=== PATIENT | male | born 1940 | race Caucasian/White ===

== ENCOUNTER 2016-07-16 14:58 | Emergency (ER) | payer SELFPAY ==
[2016-07-16] MEDS ORDERED: NORMAL SALINE 1000 ML 1,000 ML IV ONE ×2 (15:18→18:06)
[2016-07-16] MEDS ORDERED: THIAMINE HCL INJ 200 MG/2 ML VIAL IV ONE (15:18)
--- NOTE | 2016-07-16 15:50 | EKG REPORT ---
SEVERITY:- ABNORMAL ECG - SINUS RHYTHM INCOMPLETE RIGHT BUNDLE BRANCH BLOCK : Confirmed by: Mekhi Ambrosio 16-Jul-2016 15:49:34
[2016-07-16 15:54] LABS: ABSOLUTE EOSINOPHILS # (AUTO) 0.1 10^3/uL (0.0-0.6); ABSOLUTE LYMPHOCYTES (AUTO) 0.9 10^3/uL (0.5-4.7); ABSOLUTE MONOCYTES (AUTO) 0.8 10^3/uL (0.1-1.4); ABSOLUTE NEUT (AUTO) 4.7 10^3/uL (1.7-8.2); BASOPHILS % (AUTO) 0.7 % (0-2); EOSINOPHILS % (AUTO) 1.7 % (0-6); HEMATOCRIT 37.4 % (37.9-51.0); HGB HCT DIFFERENCE -1.4; LYMPHOCYTES % (AUTO) 13.8 % (13-45); MEAN CORPUSCULAR HEMOGLOBIN 33.4 pg (27.0-33.4); MEAN CORPUSCULAR VOLUME 105 fl (80-97); MONOCYTES % (AUTO) 12.5 % (3-13); RED BLOOD COUNT 3.58 10^6/uL (4.35-5.55); RED CELL DISTRIBUTION WIDTH 19.2 % (11.5-14.0); SEGMENTED NEUTROPHILS % (AUTO) 71.3 % (42-78); WHITE BLOOD COUNT 6.7 10^3/uL (4.0-10.5)
--- NOTE | 2016-07-16 16:09 | ER Document Report ---
ED General - General Mode of Arrival: Medic Information source: Patient - HPI Onset: Other - see narrative Onset/Duration: Persistent Quality of pain: Cramping <SIS MALONEY - Last Filed: 07/16/16 22:01> <VENKATA JAY - Last Filed: 07/16/16 22:42> - General Stated Complaint: WEAKNESS Notes: Patient is a 76-year-old male that presents to the emergency department today with complaints of 3 days of generalized weakness with associated mild abdominal pain. Patient states he is an alcoholic, drinking EtOH nearly every day. Patient states his last drink was yesterday. Patient states he has felt "not well" over the last few days and he states that this feeling has getting worse recently. Patient appears demented so history is limited. (SIS MALONEY) - Related Data Allergies/Adverse Reactions: No Known Allergies Allergy (Unverified 07/16/16 16:48) Past Medical History - General Information source: Patient, [facility] Records Cannot obtain history due to: Dementia - Social History Smoking Status: Former Smoker Cigarette use (# per day): No Frequency of alcohol use: None Drug Abuse: None Lives with: Family Family History: Reviewed & Not Pertinent Surgical Hx: Other - states he has had surgeries in the past but he does not remember what they were <SIS MALONEY - Last Filed: 07/16/16 22:01> Review of Systems - Review of Systems Constitutional: See HPI, Weakness EENT: No symptoms reported Cardiovascular: No symptoms reported Respiratory: No symptoms reported Gastrointestinal: See HPI, Abdominal pain - generalized Genitourinary: No symptoms reported Male Genitourinary: No symptoms reported Musculoskeletal: No symptoms reported Skin: No symptoms reported Hematologic/Lymphatic: No symptoms reported Neurological/Psychological: No symptoms reported -: Yes All other systems reviewed and negative <SIS MALONEY - Last Filed: 07/16/16 22:01> Physical Exam - General General appearance: Alert In distress: None - HEENT Mouth/Lips: Other - dry oral mucosa, peeling skin on lips Mucous membranes: Dry - Respiratory Respiratory status: No respiratory distress Chest status: Nontender Breath sounds: Normal - Cardiovascular Rhythm: Regular Heart sounds: Normal auscultation Murmur: No - Abdominal Inspection: Normal Distension: No distension Bowel sounds: Normal Tenderness: Nontender - Extremities General upper extremity: Normal inspection, Nontender, Normal ROM. No: Edema General lower extremity: Normal inspection, Nontender, Normal ROM. No: Edema - Neurological Cognition: Other - demented at baseline Speech: Normal - Psychological Associated symptoms: Normal affect, Normal mood - Skin Skin Temperature: Warm Skin Moisture: Dry Skin Color: Normal <SIS MALONEY - Last Filed: 07/16/16 22:01> Course - Laboratory Result Diagrams: 07/16/16 15:38 07/16/16 15:38 <SIS MALONEY - Last Filed: 07/16/16 22:01> - Laboratory Result Diagrams: 07/16/16 15:38 07/16/16 15:38 - Diagnostic Test Radiology reviewed: Image reviewed, Reports reviewed - Chest x-ray shows linear basilar atelectasis otherwise unremarkable. CT scan of the head shows mild chronic atrophy with microvascular ischemic changes. - EKG Interpretation by Sc EKG shows normal: Sinus rhythm, [place], Intervals, ST-T Waves. abnormal: QRS Complexes Rate: Normal - 89 Rhythm: NSR [place]/QRS: RBBB When compared to previous EKG there are: Previous EKG unavailable <VENKATA JAY - Last Filed: 07/16/16 22:42> - Re-evaluation Re-evalutation: 07/16/16 21:59 The patient does feel better after 2 L normal saline. He was gotten up to walk around with assistance as he uses a walker at home. He was able to maintain correct posture and stand and walk without much difficulty. He did have some shakiness when standing. He states that this all feels about normal for him. He had been asking for food to eat earlier. 07/16/16 22:38 After 2 L of IV fluids, the urinalysis was obtained with specific gravity 1.026 , 16 wbc's and 1 epithelial cell. This is suspicious for urinary tract patient, probably related to them becoming a little dehydrated. We will start him on Keflex and culture the urine. (VENKATA JAY) - Vital Signs Vital signs: Temp Pulse Resp BP Pulse Ox 98.7 F 07/16/16 15:19 (VENKATA JAY) - Laboratory Laboratory results interpreted by me: 07/16/16 07/16/16 07/16/16 15:38 15:38 21:26 RBC 3.58 L Hgb 12.0 L Hct 37.4 L MCV 105 H RDW 19.2 H Est GFR (Non-Af Amer) 57 L Glucose 117 H Total Bilirubin 2.0 H AST 133 H Alkaline Phosphatase 232 H Creatine Kinase < 20 L Albumin 2.8 L Urine Protein 30 H Urine Ketones TRACE H Urine Bilirubin SMALL H Urine Urobilinogen 4.0 H Ur Leukocyte Esterase SMALL H (SIS MALONEY) (VENKATA JAY) Discharge <SIS MALONEY - Last Filed: 07/16/16 22:01> <VENKATA JAY - Last Filed: 07/16/16 22:42> - Discharge Clinical Impression: Dehydration, Weakness Urinary tract infection Qualifiers: Urinary tract infection type: site unspecified Hematuria presence: without hematuria Qualified Code(s): N39.0 - Urinary tract infection, site not specified Condition: Stable Disposition: HOME, SELF-CARE Additional Instructions: Urinary Tract Infection: Your evaluation suggests that you have a urinary tract infection. This is due to germs growing in the bladder. This is a common problem. This infection usually responds quickly to antibiotics. Your antibiotic should be taken exactly as prescribed. Drink plenty of fluids -- three to four quarts a day. Certain urine infections require a culture. If the doctor obtained a culture, the results will be back in two days. You should call to see if a change in treatment is needed. A repeat urinalysis after you finish treatment is often recommended. The physician will let you know if further testing is required. Call the doctor if you develop fever, chills, flank pain, inability to urinate, or blood in the urine. Weakness: We did not find a definite cause for your weakness. This may require further medical tests. Weakness can be caused by infection, physical exhaustion , rapid weight loss, dehydration, or medicine side effects. Diseases of the muscles, heart, nerves, and blood vessels can make you weak. Sometimes the problem is simply depression or lack of exercise. You should get plenty of rest. Unless the doctor tells you otherwise, it's usually best to add short periods of regular mild exercise. Eat a nutritious diet with multiple small, low-sugar meals. If symptoms continue, additional medical evaluation will be necessary. Be sure to follow up as instructed. If you become very dizzy, nauseated, or feel like you're going to faint, lie down right away. Wait until the symptoms have passed before you get up again. Stand up slowly. Call the doctor or return if you develop chest pain, abdominal pain, severe headache, irregular heartbeat or very fast pulse, confusion, vision problems, fever, muscular pain, or any other new symptom. //////////////////////////////////////////////////////////////////////////////// //////////////////////////////////////////////////////////////////////////////// ///////////// Your evaluation today suggests you have a urinary tract infection. This probably occurred due to coming dehydrated. Your weakness today is also probably due to becoming dehydrated. You will be started on antibiotics and the urine will be cultured. Be sure to drink plenty of fluids, and eat regular meals. Follow-up with your doctor tomorrow for recheck. RETURN TO THE EMERGENCY ROOM IF ANY NEW OR WORSENING SYMPTOMS. Prescriptions: Cephalexin Monohydrate [Keflex 500 mg Capsule] 500 mg PO TID #15 capsule Scribe Attestation: 07/16/16 22:42 I personally performed the services described in the documentation, reviewed and edited the documentation which was dictated to the scribe in my presence, and it accurately records my words and actions. (VENKATA JAY) Scribe Documentation - Scribe Written by Alaina:: Alaina Garcia, [id number] 07/16/16 acting as scribe for :: Deja <SIS MALONEY - Last Filed: 07/16/16 22:01>
[2016-07-16 16:17] LABS: ALANINE AMINOTRANSFERASE 49 U/L (21-72); ALBUMIN 2.8 g/dL (3.5-5.0); ALKALINE PHOSPHATASE 232 U/L (38-126); ANION GAP 11 (5-19); ASPARTATE AMINO TRANSFERASE 133 U/L (17-59); BLOOD UREA NITROGEN 14 mg/dL (7-20); CALCIUM 8.5 mg/dL (8.4-10.2); CARBON DIOXIDE 27 mmol/L (22-30); CHLORIDE 101 mmol/L (98-107); CREATININE RESULT 1.23 mg/dL (0.52-1.25); GLUCOSE 117 mg/dL (75-110); MAGNESIUM 1.6 mg/dL (1.6-2.3); POTASSIUM 3.6 mmol/L (3.6-5.0); SODIUM 139.4 mmol/L (137-145); TOTAL PROTEIN 6.3 g/dL (6.3-8.2)
[2016-07-16 16:18] LABS: CREATINE KINASE < 20 U/L (55-170)
[2016-07-16 16:28] LABS: CREATINE KINASE MB 0.23 ng/mL (<4.55); TROPONIN I 0.014 ng/mL
[2016-07-16 22:16] LABS: AMORPHOUS SEDIMENT,URINE TRACE /HPF; APPEARANCE,URINE SLIGHTLY-CLOUDY; BILIRUBIN,URINE SMALL (NEGATIVE); GLUCOSE, URINE NEGATIVE (NEGATIVE); KETONES,URINE TRACE mg/dL (NEGATIVE); LEUKOCYTE ESTERASE,URINE SMALL (NEGATIVE); NITRITE,URINE NEGATIVE (NEGATIVE); PROTEIN,URINE 30 mg/dL (NEGATIVE); URINE SPECIFIC GRAVITY 1.026
[2016-07-16] MEDS ORDERED: CEPHALEXIN 500 MG CAPSULE PO ONE (22:38)
[2016-07-16 23:37] VITALS: BP 138/98
== END 2016-07-16 23:30 | disposition home or self-care (01) ==
LOC: ER 14:58
DX: N39.0 Urinary tract infection, site not specified (principal); R53.1 Weakness; E86.0 Dehydration; R10.84 Generalized abdominal pain; F10.20 Alcohol dependence, uncomplicated
CPT/HCPCS: 93005; 99285; 96361; 96374; 36415; 87086; 82553; 82550; 83735; 84443; 85025; 80053; 81001; 84484; 71010; 70450; 93010; J3411; J7030